=== PATIENT | male | born 1995 | race Native Hawaiian/Other Pacific Islander ===

== ENCOUNTER 2018-07-29 23:55 | Emergency (ER) | payer OTHER ==
[2018-07-30] MEDS ORDERED: LIDOCAINE W/EPINEPHRINE 1% 20ML VIAL As Ordered (00:09)
[2018-07-30] MEDS: LIDOCAINE W/EPINEPHRINE 1% 20ML VIAL SC (00:22)
== END 2018-07-30 00:56 | disposition home or self-care (01) ==
LOC: M ED 23:55
DX: S01.80XA Unspecified open wound of other part of head, initial encounter (principal); F10.129 Alcohol abuse with intoxication, unspecified; F17.210 Nicotine dependence, cigarettes, uncomplicated; W50.0XXA Accidental hit or strike by another person, initial encounter; Y92.9 Unspecified place or not applicable
CPT/HCPCS: 12001